=== PATIENT | male | born 1950 | race Caucasian/White ===

== ENCOUNTER 2016-11-25 08:09 | Day surgery (SDC) | payer OTHER ==
[~2016-11-25 08:09] MED LIST: Buffered Lidocaine 1% SYR 3ML* 3 ML/SYR SYRINGE INTRADERM ONE; Famotidine IV* 10 MG/ML 2 ML (20 mg) IV ONE; Metoclopramide TAB* 10 MG PO ONE
[2016-11-25] MEDS ORDERED: ceFAZolin 2 GM PREMIX (*) 2 GM/50 ML BAG IVPB ONE (08:26)
[2016-11-25] MEDS ORDERED: Bupivacaine 0.25% SDV* 30 ML ONE (08:56)
[2016-11-25] MEDS ORDERED: Betamethasone INJ* 6 MG/ML 5 ML VIAL (30 MG) ONE ×3 (09:26→09:31)
[2016-11-25] MEDS ORDERED: Lidocaine 1% MPF* 2 ML VIAL ONE (09:27)
[2016-11-25] MEDS ORDERED: fentaNYL* 50 MCG/ML 2 ML VIAL (100 MCG VIAL) ONE (09:30)
[2016-11-25] MEDS ORDERED: fentaNYL* 50 MCG/ML 2 ML VIAL (100 MCG VIAL) IV PRN (09:56)
[2016-11-25] MEDS ORDERED: HYDROcodone/ACETAMIN 5-325 MG* 1 TAB PO PRN (09:56)
[2016-11-25] MEDS ORDERED: Ketorolac INJ* 30 MG/ML 1 ML VIAL IV PRN (09:56)
[2016-11-25] MEDS ORDERED: Propofol* 10 MG/ML 20 ML BTL IV PUSH ONE (10:02)
[2016-11-25] MEDS ORDERED: Lidocaine 2% PF * 5 ML VIAL ONE (10:02)
[2016-11-25] MEDS ORDERED: Ketorolac INJ* 30 MG/ML 1 ML VIAL ONE (11:21)
[2016-11-25] MEDS ORDERED: HYDROcodone/ACETAMIN 5-325 MG* 1 TAB ONE (11:37)
[2016-11-25 11:48] VITALS: BP 116/66
--- NOTE | 2016-11-25 15:11 | RAD ---
CPT II Codes: 6045F INDICATION: Right wrist hardware removal TECHNIQUE: Intraoperative fluoroscopy was provided during removal of plate and screw fixator spanning the right wrist. FINDINGS: 2 spot films depict removal of a dorsal right wrist plate and proximal screws. The 3 distal screws remain in position overlying the right middle finger metacarpal after removal of the plate. Fluoroscopy time: 15 seconds IMPRESSION: As above.
--- NOTE | 2016-11-26 10:25 | OP ---
DATE OF OPERATION: 11/25/16 - [facility] DATE OF : 52 SURGEON: Neeraj Murphy MD FIELD OPERATOR: ESTIVEN Mccullough ANESTHESIOLOGIST: Dr. Torrez ANESTHESIA: General. PRE-OP DIAGNOSES: 1. Symptomatic hardware right wrist, status post total wrist fusion. 2. Right dorsal hand mass. 3. Right middle trigger finger. 4. Left middle trigger finger. POST-OP DIAGNOSES: 1. Symptomatic hardware, right wrist, status post total wrist fusion. 2. Right dorsal hand mass. 3. Right middle trigger finger. 4. Left middle trigger finger. OPERATIVE PROCEDURE: 1. Removal of plate and screws right wrist. 2. Excision of subcutaneous mass right dorsal hand, 6 mm. 3. Right middle finger A1 janeen release. 4. Left middle trigger finger steroid injection. INDICATIONS: Alessandro is a 66-year-old gentleman who had a wrist fusion performed about 10 years ago. The radiocarpal and mid carpal fusions look well fused on x - ray. The distal screws in the metacarpal had broken due to lack of fusion at the carpometacarpal joint. He also has a right middle trigger finger and a dorsoradial subcutaneous hand mass and the left middle trigger finger. We talked about risks and benefits about the procedures. He has elected to proceed. FINDINGS: As expected. EBL: 5 mL. COMPLICATIONS: None. DESCRIPTION OF PROCEDURE: Verbal consent was obtained. The patient was seen in the preoperative holding area and the correct site, side, and procedures were identified. We came back to the operating room. Anesthesia was induced. The hand was prepped and draped in the usual fashion. We had a formal time-out. I went back through the the dorsal incision on the right wrist. This was done after the arm was exsanguinated and the tourniquet inflated to 250 mmHg. Dissection was carried down through the subcutaneous tissue. The extensor retinaculum was identified and full-thickness flaps were raised off the extensor retinaculum, taking care to preserve the EPL tendon which had been transposed. The plate was freed up of its soft tissue distally where it was quite prominent. The distal three screw heads were removed. The screw heads had broken off from the shaft of the screws. I then went ahead and freed up soft tissue off of the plate proximally and removed the four proximal screws. I was then able to carry down the dissection through the extensor retinaculum over the third dorsal compartment. All the soft tissue was removed off of the plate. I was then able to remove the plate. I used the rongeur to kathleen back the bony prominences at each of the screw holes. Everything was clean. None of the screws in the metacarpal shaft distally were prominent, so we just left them in place. There was quite a bit of metallosis distally, and this was irrigated and cleaned up to the extent possible. At this point, I went ahead and repaired the extensor retinaculum with subcu Ethibond suture. The wound was then irrigated and the skin was closed with 4-0 nylon suture. I then made a small V-shaped incision over the dorsal radial hand mass. Dissection was carried down with the tenotomy scissors. The margin and the mass were freed up and then the mass was excised. It had the appearance of a vein or a little phlebolith. This was excised and the wound was irrigated, and skin was closed with 4-0 nylon suture. I then went ahead and turned over the hand and made a longitudinal incision over the right middle finger A1 janeen. Dissection was carried down bluntly with scissors and the tendon sheath was exposed. I then longitudinally incised the A1 janeen and completed the release of the janeen with the tenotomy scissors proximally and distally. I then irrigated out the wound, and this was again closed with some 4-0 nylon suture. All wounds were then dressed with Xeroform, 4x4s, and sterile Webril, and then an Diony wrap was applied. The tourniquet was then deflated. Total tourniquet time was 69 minutes. All the fingers pinked up immediately. The patient was then awoken up and taken to the recovery room in stable condition. [id number]/[facility] #: [id number] ALFREDA
--- NOTE | 2016-12-21 05:36 | OP ---
OPERATIVE REPORT:* DATE OF OPERATION: 11/25/16 ADDENDUM: This is an addendum to the patient's previous operative record. For full description of the operation, please see the other operative note. Please note that prior to prepping and draping the right upper extremity and after the patient was anesthetized, I had gone ahead and cleaned the area over the left middle finger A1 janeen with alcohol. I then used a 25-gauge needle to inject 1 mL of 1% plain lidocaine and 6 mg of betamethasone into the tendon sheath in the area around the A1 janeen of the left middle finger. The needle was removed and a Band- Aid was applied. [id number]/[facility] #: [id number] ALFREDA
== END 2016-11-25 12:06 | disposition home or self-care (01) ==
LOC: OREAST 08:09
PROVIDERS: ATTEND Orthopaedic Surgery Hand Surgery
DX: T84.84XA Pain due to internal orthopedic prosthetic devices, implants and grafts, initial encounter (principal); Y83.1 Surgical operation with implant of artificial internal device as the cause of abnormal reaction of the patient, or of later complication, without mention of misadventure at the time of the procedure; M65.331 Trigger finger, right middle finger; M67.441 Ganglion, right hand; J45.909 Unspecified asthma, uncomplicated; J44.9 Chronic obstructive pulmonary disease, unspecified
CPT/HCPCS: 76000; 88300; 88305; J0690; J0702; J1885; J2704; J3010